=== PATIENT | female | born 1990 | race Caucasian/White ===

== ENCOUNTER → 2017-06-24 | Outpatient (CLI) | payer OTHER | END | disposition home or self-care (01) | LOC: LABWHC1 13:51 | PROVIDERS: ATTEND Obstetrics & Gynecology | DX: Z14.1 Cystic fibrosis carrier (principal) | CPT/HCPCS: 36415; 81220 ==

== ENCOUNTER 2019-02-18 18:40 | Emergency (ER) | payer BC ==
[2019-02-18 18:52] VITALS: RESP 18; TEMP 98
--- NOTE | 2019-02-18 19:05 | ED ---
Abdominal Pain HPI - General Source: patient Mode of arrival: ambulatory Limitations: no limitations <Thi Alfaro - Last Filed: 02/18/19 21:44> <Haleigh Carpio - Last Filed: 02/20/19 03:24> - General Chief Complaint: Abdominal Pain Stated Complaint: rt sided abd pain Time Seen by Provider: 02/18/19 18:50 - History of Present Illness Initial Comments: 28-year-old female patient presents to the emergency department today for evaluation of right lower quadrant abdominal pain. Patient states that pain is been present intermittently since . States that the pain is a sharp pinching type pain that lasts for a few seconds and wakes her up from sleep. Patient denies any fever, chills, nausea, vomiting, constipation, or diarrhea with this. Denies any hematuria, dysuria, urinary urgency, urinary frequency. She denies any abnormal vaginal bleeding or discharge. Patient states there is a possibility of however she has not missed any periods. Patient states she has had an ovarian cyst in the past and the pain leading up to the cyst rupture did feel similar to this. She is having a dull aching pain in her mid left low back. Patient denies any recent rash, shortness breath, chest pain, diarrhea, constipation, numbness, tingling, dizziness, weakness, headache, visual changes, or any other complaints. She states she is currently symptom free, but leaves for vacation on Wednesday. (Thi Alfaro) - Related Data Home Medications Medication Instructions Recorded Confirmed Pnv,Calcium 72/Iron/Folic Acid 1 each PO DAILY 11/28/15 12/27/15 [ Plus Tablet] Previous Rx's Medication Instructions Recorded Acetaminophen-Codeine 300-30mg 1 each PO Q4HR PRN #30 tab 12/30/15 [Tylenol w/codeine #3] Ibuprofen [Motrin] 600 mg PO Q6HR PRN #60 tab 12/30/15 Allergies Allergy/AdvReac Type Severity Reaction Status Date / Time No Known Allergies Allergy Verified 02/18/19 18:51 Review of Systems ROS Other: All systems not noted in ROS Statement are negative. <Thi Alfaro - Last Filed: 02/18/19 21:44> ROS Other: All systems not noted in ROS Statement are negative. <Haleigh Carpio Last Filed: 02/20/19 03:24> ROS Statement: Those systems with pertinent positive or pertinent negative responses have been documented in the HPI. Past Medical History Past Medical History: No Reported History Additional Past Medical History / Comment(s): Left knee injury History of Any Multi-Drug Resistant Organisms: None Reported Past Surgical History: Section Additional Past Surgical History / Comment(s): wisdom teeth removed Past Anesthesia/Blood Transfusion Reactions: No Reported Reaction Past Psychological History: No Psychological Hx Reported Smoking Status: Never smoker Past Alcohol Use History: Occasional Past Drug Use History: None Reported - Past Family History Mother Family Medical History: Hypertension <Thi Alfaro M - Last Filed: 02/18/19 21:44> General Exam Limitations: no limitations General appearance: alert, in no apparent distress, other (Physical well-develo ped, well-nourished adult female patient in no acute distress. Vital signs upon presentation are temperature 98.0F, pulse 101, respirations 18, blood pressure 129/79, pulse ox 99% on room air.) Eye exam: Present: normal appearance, PERRL, EOMI. Absent: scleral icterus, conjunctival injection, periorbital swelling ENT exam: Present: normal exam, normal oropharynx, mucous membranes moist Respiratory exam: Present: normal lung sounds bilaterally. Absent: respiratory distress, wheezes, rales, rhonchi, stridor Cardiovascular Exam: Present: normal rhythm, tachycardia, normal heart sounds. Absent: systolic murmur, diastolic murmur, rubs, gallop, clicks GI/Abdominal exam: Present: soft, normal bowel sounds. Absent: distended, tenderness, guarding, rebound, rigid Neurological exam: Present: alert, oriented X3, CN II-XII intact Psychiatric exam: Present: normal affect, normal mood Skin exam: Present: warm, dry, intact, normal color. Absent: rash <Thi Alfaro M - Last Filed: 02/18/19 21:44> Course Vital Signs 02/18/19 02/18/19 18:48 21:01 Temperature 98.0 F 98.0 F Pulse Rate 101 H 84 Respiratory 18 18 Rate Blood Pressure 129/79 123/79 O2 Sat by Pulse 99 100 Oximetry Medical Decision Making - Radiology Data Radiology results: report reviewed, image reviewed <Thi Alfaro - Last Filed: 02/18/19 21:44> <Haleigh Carpio - Last Filed: 02/20/19 03:24> - Medical Decision Making 28-year-old female patient presents to the emergency department today for evaluation of intermittent right lower quadrant abdominal pain. Patient is pain-free today and physical examination is unremarkable. Abdomen is soft and nontender. Urinalysis is negative for any evidence of infection. She is negative for . Did perform ultrasound of the pelvis as patient does have history of ovarian cysts. Did show possible 1.8 cm ovarian cyst on the right ovary. Again patient is afebrile, no nausea or vomiting, no current abdominal tenderness so concern for appendicitis is low. We did discuss signs and symptoms of such however for return if symptoms should worsen. She is instructed to follow-up with her primary care physician or OB An[facility] for recheck as soon as possible. Return parameters were discussed in detail. She verbalizes understanding and agrees with this plan. (Thi Alfaro) I was available for consultation in the emergency department. The history and physical exam were done by the midlevel provider. I was consulted for this patient's care. I reviewed the case with the midlevel provider and based on their presentation of the patient, I agree with the assessment, medical decision making and plan of care as documented. Chart was dictated using [employer] dictation software. Attempts were made to correct any dictation errors however some typographical errors may persist. (Haleigh Carpio) - Lab Data Lab Results 02/18/19 02/18/19 Range/Units 19:28 19:28 Urine Color Light Yellow Urine Appearance Clear (Clear) Urine pH 7.0 (5.0-8.0) Ur Specific [place] 1.007 (1.001-1.035) Urine Protein Negative (Negative) Urine Glucose (UA) Negative (Negative) Urine Ketones Negative (Negative) Urine Blood Negative (Negative) Urine Nitrite Negative (Negative) Urine Bilirubin Negative (Negative) Urine Urobilinogen <2.0 (<2.0) mg/dL Ur Leukocyte Esterase Negative (Negative) Urine HCG, Qual Not Detected (Not Detectd) - Radiology Data Pelvic ultrasound was obtained. Report was reviewed in its entirety. Impression by Dr. Arenas shows cervical nabothian cysts. Possible scar. Endometrial stripe measures 1 cm, within normal limits. 1.8 cm dominant follicle or functional cyst in the right ovary. Small amount of cul-de-sac free fluid likely physiologic. (Thi Alfaro) Disposition Is patient prescribed a controlled substance at d/c from ED?: No Time of Disposition: 21:20 <Thi Alfaro - Last Filed: 02/18/19 21:44> <Haleigh Carpio - Last Filed: 02/20/19 03:24> Clinical Impression: Right lower quadrant pain, Right ovarian cyst Disposition: HOME SELF-CARE Condition: Good Instructions (If sedation given, give patient instructions): Ovarian Cyst (ED), Abdominal Pain (ED) Additional Instructions: Follow-up with your primary care physician for recheck as soon as possible. Take Tylenol Motrin for pain control. Return to the emergency department immediately for any new, worsening, or concerning symptoms. Referrals: Javier Farr DO [Primary Care Provider] - 1-2 days
[2019-02-18 19:43] LABS: Appearance,Urine Clear (Clear); Bilirubin,Urine Negative (Negative); Blood,Urine Negative (Negative); Color,Urine Light Yellow; Glucose,Urine (UA) Negative (Negative); Ketones,Urine Negative (Negative); Leukocyte Esterase,Urine Negative (Negative); Nitrite,Urine Negative (Negative); Protein,Urine Negative (Negative); Specific Gravity,Urine 1.007 (1.001-1.035); Urobilinogen,Urine <2.0 mg/dL (<2.0)
--- NOTE | 2019-02-18 20:47 | US ---
EXAMINATION TYPE: US transvaginal. There is DATE OF EXAM: 02/18/2019 COMPARISON: NONE CLINICAL HISTORY: 28-year-old female Pain. TECHNIQUE: Transvaginal (TV). Color Doppler spectral waveform analysis of the right ovarian arteries and veins. FINDINGS: EXAM MEASUREMENTS: Uterus: 9.3 x 4.4 x 5.7 cm Endometrial Stripe: 1.0 cm Right Ovary: 2.8 x 2.6 x 2.6 cm Left Ovary: 2.5 x 1.6 x 1.4 cm 1. Uterus: Anteverted, wnl. Cervical nabothian cysts are present. Possible scar along th e anterior lower uterine segment. 2. Endometrium: wnl 3. Right Ovary: 1.8 cm dominant follicle noted. Their is satisfactory arterial and venous flow demons trated within the right ovary. 4. Left Ovary: wnl. Spectral waveform analysis was not performed on this side. 5. Bilateral Adnexa: wnl 6. Posterior cul-de-sac: mild free fluid IMPRESSION: 1. Cervical nabothian cysts. Possible scar. Clinically correlate. 2. Endometrial stripe measures 1 cm, within normal limits. 3. A 1.8 cm dominant follicle or functional cyst in the right ovary. 4. Small amount of cul-de-sac free fluid likely physiologic.
[2019-02-18 21:02] VITALS: BP 123/79; PULSE 84
== END 2019-02-18 21:32 | disposition home or self-care (01) ==
LOC: EC 18:40
DX: N83.201 Unspecified ovarian cyst, right side (principal); N88.8 Other specified noninflammatory disorders of cervix uteri; Z32.02 Encounter for pregnancy test, result negative; R00.0 Tachycardia, unspecified; M54.5 Low back pain
CPT/HCPCS: 76830; 81003; 81025; 99284

== ENCOUNTER 2019-06-08 19:44 | Emergency (ER) | payer BC ==
[2019-06-08] MEDS ORDERED: MORPHINE SULFATE 4 MG/ML SYRINGE IM STA (19:50)
[2019-06-08] MEDS ORDERED: IBUPROFEN 800 MG TAB PO STA (19:57)
[2019-06-08] MEDS ORDERED: Acetaminophen-Codeine 300-30mg TAB PO STA (19:57)
--- NOTE | 2019-06-08 20:36 | XR ---
EXAMINATION TYPE: XR knee complete LT DATE OF EXAM: 06/08/2019 COMPARISON: NONE HISTORY: Knee pain TECHNIQUE: 3 views FINDINGS: I see no fracture nor dislocation. There is mild knee joint effusion. Joint spaces are norm al. IMPRESSION: Small joint effusion. No fracture.
--- NOTE | 2019-06-08 20:49 | ED ---
Lower Extremity Injury HPI - General Chief Complaint: Extremity Injury, Lower Stated Complaint: knee injury Time Seen by Provider: 06/08/19 19:57 Source: patient, family, RN notes reviewed, old records reviewed Mode of arrival: ambulatory Limitations: no limitations - History of Present Illness Initial Comments: This is a 29-year-old female the ER for evaluation patient presents to ER for evaluation of severe left knee pain deformity. Patient was playing volleyball today and noticed her knee water place. He denies any other trauma or injury. No drugs or alcohol use today. Patient having severe left knee pain MD Complaint: knee injury ((Sorto or dislocation) -: minutes(s) Injury: Knee: Left Type of Injury: hyperextension, unknown Place: street/outdoors (Playing volleyball) Severity: severe Severity scale (1-10): 10 Improves With: nothing Worsens With: movement Associated Symptoms: snap/pop sensation, swelling, unable to bear weight - Related Data Home Medications Medication Instructions Recorded Confirmed Adapalene/Benzoyl Peroxide [Epiduo 1 applic TOPICAL DAILY 06/08/19 06/08/19 Forte 0.3-2.5% Gel Pump] Clindamycin 1% Pledgets 1 applic TOPICAL BID 06/08/19 06/08/19 Allergies Allergy/AdvReac Type Severity Reaction Status Date / Time No Known Allergies Allergy Verified 06/08/19 20:27 Review of Systems ROS Statement: Those systems with pertinent positive or pertinent negative responses have been documented in the HPI. ROS Other: All systems not noted in ROS Statement are negative. Past Medical History Past Medical History: No Reported History Additional Past Medical History / Comment(s): Left knee injury History of Any Multi-Drug Resistant Organisms: None Reported Past Surgical History: Section Additional Past Surgical History / Comment(s): wisdom teeth removed Past Anesthesia/Blood Transfusion Reactions: No Reported Reaction Past Psychological History: No Psychological Hx Reported Smoking Status: Never smoker Past Alcohol Use History: Occasional Past Drug Use History: None Reported - Past Family History Mother Family Medical History: Hypertension General Exam - General Exam Comments Initial Comments: Significant left is patellar dislocation Limitations: no limitations General appearance: alert, anxious, in distress Head exam: Present: atraumatic, normocephalic, normal inspection Eye exam: Present: normal appearance, PERRL, EOMI. Absent: scleral icterus, conjunctival injection, periorbital swelling ENT exam: Present: normal exam, mucous membranes moist Neck exam: Present: normal inspection. Absent: tenderness, meningismus, lymphadenopathy Respiratory exam: Present: normal lung sounds bilaterally. Absent: respiratory distress, wheezes, rales, rhonchi, stridor Cardiovascular Exam: Present: regular rate, normal rhythm, normal heart sounds. Absent: systolic murmur, diastolic murmur, rubs, gallop, clicks GI/Abdominal exam: Present: soft, normal bowel sounds. Absent: distended, ten derness, guarding, rebound, rigid Extremities exam: Present: normal inspection, full ROM, normal capillary refill. Absent: tenderness, pedal edema, joint swelling, calf tenderness Back exam: Present: normal inspection Neurological exam: Present: alert, oriented X3, CN II-XII intact Psychiatric exam: Present: normal affect, normal mood Skin exam: Present: warm, dry, intact, normal color. Absent: rash Course Vital Signs 06/08/19 19:58 Temperature 97.2 F L Pulse Rate 98 Respiratory 22 Rate Blood Pressure 131/59 O2 Sat by Pulse 97 Oximetry Procedures - Orthopedic Joint Reduction Joint #1 Consent Obtained: verbal consent Side: left Joint Reduction Location: knee/patella Technique Used: direct manipulation Post-Reduction Neuro Exam: intact Post-Reduction Vascular Exam: intact Post Reduction X-Ray Obtained: Yes Post Reduction X-Ray Results: reduced Splint Applied: Yes Patient Tolerated Procedure: well Medical Decision Making - Medical Decision Making 29 female the ER for evaluation of left patellar dislocation patella is recall relocated here in the ER patient has knee immobilizer placed on fall with orthopedics - Radiology Data Radiology results: report reviewed (X-ray left knee does show small joint effusion), image reviewed Disposition Clinical Impression: Dislocation of left patella Disposition: HOME SELF-CARE Condition: Fair Is patient prescribed a controlled substance at d/c from ED?: No Referrals: Mono Sharpe DO [Medical Doctor] - 1-2 days
[2019-06-08 21:19] VITALS: BP 132/82; PULSE 96; RESP 19; TEMP 98.7
== END 2019-06-08 21:17 | disposition home or self-care (01) ==
LOC: EC 19:44
DX: S83.005A Unspecified dislocation of left patella, initial encounter (principal); Z79.899 Other long term (current) drug therapy; X58.XXXA Exposure to other specified factors, initial encounter; Y93.68 Activity, volleyball (beach) (court); Y92.410 Unspecified street and highway as the place of occurrence of the external cause
CPT/HCPCS: 73562; 99284; 27560; L1830

== ENCOUNTER 2021-02-13 10:58 | Emergency (ER) | payer BC ==
[2021-02-13 11:41] VITALS: TEMP 98.3
--- NOTE | 2021-02-13 11:42 | ED ---
General Adult HPI - General Source: patient, RN notes reviewed Mode of arrival: ambulatory Limitations: no limitations <Dequan Castellanos - Last Filed: 02/13/21 11:41> <Harman Jones - Last Filed: 02/13/21 20:06> - General Stated complaint: 9wks preg, covid + Time Seen by Provider: 02/13/21 11:41 - History of Present Illness Initial comments: This a 30-year-old female presents emergency Department chief complaint of positive covid, . Patient states she is currently 9 weeks . 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 Kevin Patient did contact office in which itches should come emergency department for steroids, antibiotics. Patient states that she has no significant past medical history. Patient is known drug ALLERGIES. Patient has nonproductive cough. Patient has no complaints. (Dequan Castellanos) This is a 30-year-old female presents emergency Department with a positive test for COVID and symptoms starting about 9 days ago. Patient states she is 9 weeks as well. Patient states her primary medical care doctor total come to the hospital because she feels somewhat short of breath but mostly it hurts to cough and she can't stop coughing. Patient states she spoke with Dr. Gonzales's office and they told her steroids would be okay. Patient denies any chest pain except when coughing or taking deep breath. Patient denies any abdominal pain patient denies any nausea vomiting. Patient denies any lightheadedness or dizziness. Patient denies any calf tenderness or leg swelling. (Harman Jones) - Related Data Home Medications Medication Instructions Recorded Confirmed Adapalene/Benzoyl Peroxide [Epiduo 1 applic TOPICAL DAILY 06/08/19 06/08/19 Forte 0.3-2.5% Gel Pump] Clindamycin 1% Pledgets 1 applic TOPICAL BID 06/08/19 06/08/19 Previous Rx's Medication Instructions Recorded Benzonatate [Tessalon Perles] 200 mg PO TID #15 capsule 02/13/21 Dexamethasone [Decadron] 6 mg PO DAILY #7 tablet 02/13/21 Allergies Allergy/AdvReac Type Severity Reaction Status Date / Time No Known Allergies Allergy Verified 02/13/21 11:41 Review of Systems ROS Other: All systems not noted in ROS Statement are negative. <Dequan Castellanos - Last Filed: 02/13/21 11:41> ROS Other: All systems not noted in ROS Statement are negative. <Harman Jones - Last Filed: 02/13/21 20:06> ROS Statement: Those systems with pertinent positive or pertinent negative responses have been documented in the HPI. Past Medical History Past Medical History: No Reported History Additional Past Medical History / Comment(s): Left knee injury History of Any Multi-Drug Resistant Organisms: None Reported Past Surgical History: Section Additional Past Surgical History / Comment(s): wisdom teeth removed Past Anesthesia/Blood Transfusion Reactions: No Reported Reaction Past Psychological History: No Psychological Hx Reported Past Alcohol Use History: Occasional Past Drug Use History: None Reported - Past Family History Mother Family Medical History: Hypertension <Dequan Castellanos - Last Filed: 02/13/21 11:41> General Exam <JonesHarman - Last Filed: 02/13/21 20:06> - General Exam Comments Initial Comments: GENERAL: Patient is well-developed and well-nourished. Patient is nontoxic and well- hydrated and is in mild distress. ENT: Neck is soft and supple. No significant lymphadenopathy is noted. Oropharynx is clear. Moist mucous membranes. Neck has full range of motion without eliciting any pain. EYES: The sclera were anicteric and conjunctiva were pink and moist. Extraocular movements were intact and pupils were equal round and reactive to light. Eyelids were unremarkable. PULMONARY: She has some crackles in both bases. CARDIOVASCULAR: There is a regular rate and rhythm without any murmurs gallops or rubs. ABDOMEN: Soft and nontender with normal bowel sounds. SKIN: Skin is clear with no lesions or rashes and otherwise unremarkable. NEUROLOGIC: Patient is alert and oriented x3. Cranial nerves II through XII are grossly intact. Motor and sensory are also intact. Normal speech, volume and content. Symmetrical smile. MUSCULOSKELETAL: Normal extremities with adequate strength and full range of motion. Patient has no swelling to the legs tenderness. LYMPHATICS: No significant lymphadenopathy is noted PSYCHIATRIC: Normal psychiatric evaluation. (Harman Jones) Course Vital Signs 02/13/21 02/13/21 02/13/21 11:39 11:48 12:17 Temperature 98.3 F Pulse Rate 105 H 87 Respiratory 22 20 20 Rate Blood Pressure 110/71 115/78 O2 Sat by Pulse 98 100 Oximetry 02/13/21 12:30 Temperature 98.3 F Pulse Rate 87 Respiratory 20 Rate Blood Pressure 115/78 O2 Sat by Pulse 100 Oximetry Medical Decision Making <Harman Jones - Last Filed: 02/13/21 20:06> - Medical Decision Making I indicated to the patient that I wanted to CAT scan her chest for possible pulmonary embolism and she said she did not want that. I spoke with Dr. zuñiga she was okay with me giving her steroids and Tessalon Perles. (Harman Jones) Disposition <Dequan Castellanos - Last Filed: 02/13/21 11:41> Is patient prescribed a controlled substance at d/c from ED?: No Time of Disposition: 12:24 <Harman Jones - Last Filed: 02/13/21 20:06> Clinical Impression: Pneumonia due to COVID-19 virus Disposition: HOME SELF-CARE Condition: Good Instructions (If sedation given, give patient instructions): Coronavirus Disease 2019 (COVID-19) Prescriptions: Dexamethasone [Decadron] 6 mg PO DAILY #7 tablet Benzonatate [Tessalon Perles] 200 mg PO TID #15 capsule Referrals: Javier Farr DO [Primary Care Provider] - 1-2 days
[2021-02-13 11:48] VITALS: BP 115/78; PULSE 87; RESP 20
== END 2021-02-13 12:32 | disposition home or self-care (01) ==
LOC: EC 10:58
DX: O98.511 Other viral diseases complicating pregnancy, first trimester (principal); U07.1 COVID-19; J12.82 Pneumonia due to coronavirus disease 2019; O99.511 Diseases of the respiratory system complicating pregnancy, first trimester; Z3A.09 9 weeks gestation of pregnancy
CPT/HCPCS: 99284

== ENCOUNTER 2021-07-30 12:35 | Outpatient (CLI) | payer BC ==
[2021-07-30] MEDS ORDERED: BETAMET ACET-BETAMETH SOD PHOS 6 MG/ML MDV IM SCH (12:45)
== END 2021-07-30 12:50 | disposition home or self-care (01) ==
LOC: FBPOP 12:35
PROVIDERS: ATTEND Obstetrics & Gynecology Obstetrics
DX: O60.03 Preterm labor without delivery, third trimester (principal); Z3A.33 33 weeks gestation of pregnancy
CPT/HCPCS: 96372; J0702

== ENCOUNTER 2021-07-31 12:05 | Outpatient (CLI) | payer BC ==
[2021-07-31] MEDS ORDERED: BETAMET ACET-BETAMETH SOD PHOS 6 MG/ML MDV IM SCH (12:15)
[2021-07-31 12:27] VITALS: BP 141/59; PULSE 98; RESP 16; TEMP 98.2
== END 2021-07-31 12:25 | disposition home or self-care (01) ==
LOC: FBPOP 12:05
PROVIDERS: ATTEND Obstetrics & Gynecology Obstetrics
DX: O60.03 Preterm labor without delivery, third trimester (principal); Z3A.33 33 weeks gestation of pregnancy
CPT/HCPCS: 96372; J0702

== ENCOUNTER 2021-08-25 04:01 | Outpatient (CLI) | payer BC ==
[2021-08-25 05:44] LABS: Amorphous Sediment,Urine Rare /hpf; Appearance,Urine Cloudy (Clear); Bacteria,Urine Occasional /hpf; Bilirubin,Urine Negative (Negative); Blood,Urine Negative (Negative); Color,Urine Yellow; Glucose,Urine (UA) Negative (Negative); Ketones,Urine Trace (Negative); Leukocyte Esterase,Urine Moderate (Negative); Mucus,Urine Moderate /hpf; Nitrite,Urine Negative (Negative); Protein,Urine Trace (Negative); RBC,Urine 2 /hpf (0-5); Squamous Epithelial Cell,Urine 3 /hpf (0-4); Urobilinogen,Urine <2.0 mg/dL (<2.0); WBC,Urine 22 /hpf (0-5)
[2021-08-25 06:05] LABS: Basophils % (A) 0 %; Eosinophils # (A) 0.1 k/uL (0-0.7); Eosinophils % (A) 1 %; HCT 34.7 % (34.0-46.0); HGB 11.3 gm/dL (11.4-16.0); Lymphocytes # (A) 1.9 k/uL (1.0-4.8); Lymphocytes % (A) 22 %; MCH 26.8 pg (25.0-35.0); MCHC 32.6 g/dL (31.0-37.0); MCV 82.2 fL (80.0-100.0); Mean Platelet Volume 6.8; Monocytes # (A) 0.5 k/uL (0-1.0); Monocytes % (A) 6 %; Neutrophils # (A) 5.9 k/uL (1.3-7.7); Neutrophils % (A) 69 %; Platelet Count 342 k/uL (150-450); Poikilocytosis Slight; RBC 4.22 m/uL (3.80-5.40); RDW 14.1 % (11.5-15.5); WBC 8.5 k/uL (3.8-10.6)
[2021-08-25 06:16] LABS: ALT 13 U/L (4-34); AST 18 U/L (14-36); African American GFR (CKD) >90 (>60 ml/min/1.73 sqM); Blood Urea Nitrogen 5 mg/dL (7-17); LDH 359 U/L (313-618); Non-African American GFR(CKD) >90 (>60 ml/min/1.73 sqM); Uric Acid 3.2 mg/dL (3.7-7.4)
[2021-08-25 06:48] VITALS: BP 140/90; PULSE 107; RESP 18
--- NOTE | 2021-09-14 09:46 | P.MSEPDOC ---
Presenting Problems - Arrival Data Date of Arrival on Unit: 08/25/21 Time of Arrival on Unit: 04:01 Mode of Transport: Ambulatory - Complaint OB-Reason for Admission/Chief Complaint: Pain Comment: vaginal pain, sympysis pubis pain 06/10 Medical History - Information : 2 Para: 1 Term: 0 : 1 Abortions: Spontaneous or Elective: 0 Number of Living Children: 1 - Gestational Age Gestational Age by INÉS (wks/days): 36 Weeks and 4 Days - History Complications: Prior , Prior Review of Systems - Review of Systems Constitutional: No problems Breast: No problems ENT: No problems Cardiovascular: No problems Respiratory: No problems Gastrointestinal: No problems Genitourinary: No problems Musculoskeletal: No problems Neurological: No problems Skin: No problems Vital Signs - Pulse Supine Brachial Pulse Rate: 107 Pulse Assessment Method: Automatic Cuff - Respirations Respiratory Rate: 18 Oxygen Delivery Method: Room Air - Blood Pressure Right Arm Supine Blood Pressure: 140/90 Blood Pressure Mean: 106 Medical Screen Scoring - Cervical Exam Dilation (cm): 2 Effacement (%): 50 Station: -2 Membranes: Intact - Uterine Contractions Intensity: Mild - Assessment - Baby A Baseline FHR: 145 Heart Rate - NICHD Category: Category I (Normal) Physician Notification - Physician Notified Physician Notified Date: 08/25/21 Physician Notified Time: 04:30 Physician: Dr Herberth Garza Order Received: Yes (PI labs) - Notification Comment Comment: In department, run PI labs and will check after OR Maternal Triage Index - Maternal Triage Index Presenting for scheduled procedure w/no complaint: No - Stat/Priority 1 Stat Priority 1: No - Urgent/Priority 2 Urgent Priority 2: No - Prompt/Priority 3 Prompt Priority 3: No - Non-Urgent/Priority 4 Non-Urgent Priority 4: Yes Criteria Met for Priority 4: Common discomforts of BP not greater than 140/90 just equal to. Disposition - Disposition OB Disposition: Discharge to home Discharge Date: 08/25/21 Discharge Time: 06:30 I agree with the RN Medical Screening Exam: Yes Physician's MSE Comment: Patient was not seen or examined by myself Case reviewed; plan agreed upon as documented in EMR&OBIX.: Yes Diagnosis: PAIN, UNSPECIFIED
== END 2021-08-25 06:30 | disposition home or self-care (01) ==
LOC: FBPOP 04:01
PROVIDERS: ATTEND Obstetrics & Gynecology Obstetrics
DX: O26.893 Other specified pregnancy related conditions, third trimester (principal); R10.2 Pelvic and perineal pain; Z3A.36 36 weeks gestation of pregnancy
CPT/HCPCS: 59025; 81001; 82565; 83615; 84450; 84460; 84520; 84550; 85025; 99215

== ENCOUNTER 2021-08-28 09:55 | Inpatient (IN) | payer BC ==
[2021-08-28] MEDS ORDERED: CITRIC ACID-SODIUM CITRATE 15 ML CUP PO ONE (10:19)
[2021-08-28] MEDS ORDERED: LACTATED RINGERS 1,000 ML IV ONE (10:19)
[2021-08-28 10:41] LABS: Basophils % (A) 0 %; Eosinophils # (A) 0.1 k/uL (0-0.7); Eosinophils % (A) 1 %; HCT 34.1 % (34.0-46.0); HGB 11.1 gm/dL (11.4-16.0); Lymphocytes # (A) 1.7 k/uL (1.0-4.8); Lymphocytes % (A) 20 %; MCH 26.6 pg (25.0-35.0); MCHC 32.6 g/dL (31.0-37.0); MCV 81.4 fL (80.0-100.0); Mean Platelet Volume 6.9; Monocytes # (A) 0.5 k/uL (0-1.0); Monocytes % (A) 6 %; Neutrophils % (A) 71 %; Platelet Count 363 k/uL (150-450); Poikilocytosis Slight; RBC 4.19 m/uL (3.80-5.40); RDW 14.4 % (11.5-15.5); WBC 8.4 k/uL (3.8-10.6)
[2021-08-28] MEDS ORDERED: CELLULOSE,OXIDIZED 1 EACH EACH MISCELLANE ONE (12:00)
[2021-08-28] MEDS ORDERED: PHENYLEPHRINE-0.9% NACL SYG 1,000 MCG/10 ML SYRINGE ONE (12:07)
[2021-08-28] MEDS ORDERED: NALBUPHINE 10 MG/ML (1 ML AMP) ONE (12:07)
[2021-08-28] MEDS ORDERED: OXYTOCIN 30 UNITS/500 ML NS BAG IV ONE (12:07)
[2021-08-28] MEDS ORDERED: MORPHINE SULFATE (PF) 0.3 MG/0.3 ML SYR ONE (12:07)
[2021-08-28] MEDS ORDERED: ONDANSETRON 4 MG/2 ML VIAL IVP PRN (13:08)
[2021-08-28] MEDS ORDERED: METOCLOPRAMIDE 5 MG/ML 2 ML VIAL IVP PRN (13:08)
[2021-08-28] MEDS ORDERED: NALOXONE 0.4 MG/ML 1 ML VIAL IV PRN (13:08)
[2021-08-28] MEDS ORDERED: diphenhydrAMINE 50 MG/ML 1 ML VIAL IVP PRN ×2 (13:08)
[2021-08-28] MEDS ORDERED: diphenhydrAMINE 50 MG CAP PO PRN (13:08)
[2021-08-28] MEDS ORDERED: diphenhydrAMINE 25 MG CAP PO PRN (13:08)
[2021-08-28] MEDS ORDERED: SIMETHICONE 80 MG CHEWABLE PO PRN (13:08)
[2021-08-28] MEDS ORDERED: ZOLPIDEM 5 MG TAB PO PRN (13:08)
--- NOTE | 2021-08-28 13:13 | P.HPOB ---
History of Present Illness H&P Date: 08/28/21 Chief Complaint: IUP at 37-0/7 weeks, polyhydramnios, history of 1, family status This is a 31-year-old at 37-0/7 weeks that presents for repeat section with tubal ligation. Patient has a history of a delivery. has been uncomplicated despite new findings of polyhydramnios. FREDDIE was 27 in the office yesterday. Patient states she is done with childbearing and does wish permanent sterilization. On bloodwork this patient is a blood type of O+, rubella status immune, B surface negative, HIV negative, RPR nonreactive, group beta strep was negative. 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 Review of Systems Constitutional: Reports fatigue, Denies chills, Denies fever Ears, nose, mouth and throat: Denies headache Cardiovascular: Reports leg edema Gastrointestinal: Denies constipation, Denies diarrhea, Denies nausea, Denies vomiting Genitourinary: Reports Past Medical History Past Medical History: No Reported History Additional Past Medical History / Comment(s): Left knee injury History of Any Multi-Drug Resistant Organisms: None Reported Past Surgical History: Section Additional Past Surgical History / Comment(s): wisdom teeth removed Past Anesthesia/Blood Transfusion Reactions: No Reported Reaction Past Psychological History: No Psychological Hx Reported Smoking Status: Never smoker Past Alcohol Use History: Occasional Past Drug Use History: None Reported - Past Family History Mother Family Medical History: Hypertension Medications and Allergies Home Medications Medication Instructions Recorded Confirmed Type Aspirin 81 mg PO DAILY 07/30/21 08/28/21 History Pnv No.95/Ferrous Fum/Folic AC 1 each PO DAILY 07/30/21 08/28/21 History [ Multivitamin Tablet] Allergies Allergy/AdvReac Type Severity Reaction Status Date / Time No Known Allergies Allergy Verified 08/28/21 10:18 Exam Osteopathic Statement: *. No significant issues noted on an osteopathic structural exam other than those noted in the History and Physical/Consult. 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 Cervical exam is deferred. Results Result Diagrams: 08/28/21 10:28 Abnormal Lab Results - Last 24 Hours (Table) 08/28/21 Range/Units 10:28 Hgb 11.1 L (11.4-16.0) gm/dL Assessment and Plan (1) 37 weeks gestation of Current Visit: Yes Status: Acute Code(s): Z3A.37 - 37 WEEKS GESTATION OF SNOMED Code(s): 07542513 (2) Polyhydramnios Current Visit: Yes Status: Acute Code(s): O40.9XX0 - POLYHYDRAMNIOS, UNSP TRIMESTER, NOT APPLICABLE OR UNSP SNOMED Code(s): 68713740 (3) H/O section Current Visit: Yes Status: Acute Code(s): Z98.891 - HISTORY OF UTERINE SCAR FROM PREVIOUS SURGERY SNOMED Code(s): 801977970 Plan: 31-year-old at 37-0/7 weeks with known polyhydramnios that presents for repeat section with tubal ligation. Patient states she is done with childbearing and wishes permanent sterilization. Repeat section as discussed questions are answered. Risser reviewed including but not limited to infection, bleeding, damage to bladder, bowel, injury. Patient is co unseled on risks of tubal ligation, failure rates of 2-3 per thousand are reviewed. Patient states understanding and wishes to proceed with tubal ligation.
[2021-08-28] MEDS ORDERED: OXYTOCIN 30 UNITS/500 ML NS 30 UNIT in SALINE 1 500ML.BAG IV SCH (13:15)
--- NOTE | 2021-08-28 13:19 | P.OP ---
Date of Procedure: 08/28/21 Preoperative Diagnosis: IUP at 37 and 0/7 weeks, polyhydramnios, history of 1, family status complete Postoperative Diagnosis: Same Procedure(s) Performed: Repeat repeat section with tubal ligation Anesthesia: spinal Surgeon: Masha Kevin Estimated Blood Loss (ml): 473 IV fluids (ml): 800 Urine output (ml): 100 Pathology: other (Placenta) Condition: stable Disposition: PACU Indications for Procedure: History of 1, desires repeat, polyhydramnios Operative Findings: Viable male infant delivered at 12:30, weight of 7 lbs. 7 oz., Apgars of 7 and 8 at one and 5 minutes respectively., Anterior bladder adhesions were noted taken down sharply, Bueno draining clear urine throughout the procedure. Description of Procedure: Patient is taken back to the operating room where spinal anesthesia was found be adequate. Patient is prepped and draped in normal sterile fashion in the dorsal supine position. A Pfannenstiel skin incision was made the scalpel and carried through the underlying layer of fascia. Fascia was then incised in the midline and extended laterally. The superior aspect of the fascial incision was then grasped jaspal clamps, elevated and underlying rectus muscles dissected off sharply. Attention then turned the inferior aspect of the fascial incision which was grasped jaspal clamps, elevated and underlying rectus muscles dissected off sharply. The peritoneal and was identified and entered. This incision was then extended superior laterally and inferiorly with good visualization the bladder. Anterior bladder adhesions were noted therefore these were taken down sharply, and bluntly. Bueno was noted be draining clear yellow urine throughout the procedure. The bladder blade was then inserted. A knife was then used to perform a hysterotomy incision copious amounts of clear fluid was appreciated, the infant was then encountered in a vertex presentation, delivered in the usual fashion. was handed off to awaiting RN, after the umbilical cord was doubly clamped and cut. A spontaneous cry was noted at . The placenta was then delivered manually and the uterus was cleared of all clots and debris. Uterus was delivered from the abdomen. The hysterotomy incision was closed with 0 Vicryl in a running locked fashion. Hemostasis was appreciated The Filshie clip applicator was then used to clamp bilateral fallopian tubes according to equipment worker's instructions. The pelvis was then copiously irrigated. The uterus was then returned to the abdomen. Bleeding was noted on the left-hand side of the uterus [id number] suture was used to obtain hemostasis. Interceed was placed over the hysterotomy incision. The gutters had been cleared of all clots and debris prior to this. The peritoneum was then loosely reapproximated. The excess muscles were inspected found to be hemostatic. The fascia was closed with 0 Vicryl in a running fashion from one lateral edge the midline and the other lateral edge the midline. Subcu tissue was irrigated found to be hemostatic and closed with 3-0 Vicryl in a running fashion. The skin was then closed with 4-0 Vicryl in a subarticular fashion. Suture strips and sterile dressings were applied. All counts were noted to be correct 2 with Liyah the procedure. Patient and infant tolerated delivery well and are resting complete.
[2021-08-28] MEDS: LACTATED RINGERS 1,000 ML IV SCH ×2 (14:09→21:56)
[2021-08-28] MEDS: ACETAMINOPHEN IV (For NPO) 1,000 MG in EMPTY BAG 1 BAG IVPB PRN ×2 (14:10→21:55)
[2021-08-28] MEDS: ACETAMINOPHEN TAB 500 MG TAB PO SCH ×2 (17:28→22:11)
[2021-08-28] MEDS: IBUPROFEN IV 800 MG in SODIUM CHLORIDE 0.9% 250 ML IV PRN (18:52)
[2021-08-28] MEDS: IBUPROFEN 600 MG TAB PO SCH (19:52)
[2021-08-28] MEDS: SENNOSIDES-DOCUSATE SODIUM 1 EACH TAB PO SCH (20:06)
[2021-08-29] MEDS: IBUPROFEN IV 800 MG in SODIUM CHLORIDE 0.9% 250 ML IV PRN (00:27)
[2021-08-29] MEDS: IBUPROFEN 600 MG TAB PO SCH ×5 (01:46→22:10)
[2021-08-29] MEDS: ACETAMINOPHEN TAB 500 MG TAB PO SCH ×4 (04:52→23:34)
[2021-08-29] MEDS: LACTATED RINGERS 1,000 ML IV SCH ×2 (06:13→17:24)
[2021-08-29 06:56] LABS: Basophils % (A) 0 %; Eosinophils # (A) 0.1 k/uL (0-0.7); Eosinophils % (A) 1 %; HCT 29.5 % (34.0-46.0); HGB 10.1 gm/dL (11.4-16.0); Lymphocytes # (A) 1.3 k/uL (1.0-4.8); Lymphocytes % (A) 13 %; MCH 27.7 pg (25.0-35.0); MCHC 34.1 g/dL (31.0-37.0); MCV 81.1 fL (80.0-100.0); Mean Platelet Volume 6.9; Monocytes # (A) 0.6 k/uL (0-1.0); Monocytes % (A) 6 %; Neutrophils # (A) 7.7 k/uL (1.3-7.7); Neutrophils % (A) 78 %; Platelet Count 291 k/uL (150-450); Poikilocytosis Slight; RBC 3.64 m/uL (3.80-5.40); RDW 14.7 % (11.5-15.5); WBC 9.9 k/uL (3.8-10.6)
[2021-08-29] MEDS: SENNOSIDES-DOCUSATE SODIUM 1 EACH TAB PO SCH ×2 (08:31→19:40)
--- NOTE | 2021-08-29 09:28 | P.PNOBGPC ---
Subjective - Subjective Principal diagnosis: Postop day 1, repeat with tubal ligation Interval history: Patient is feeling well this morning. She is ambulating and voiding without difficulty. She is tolerating a regular diet without nausea or vomiting. She states her lochia is minimal. Pain is controlled with oral ibuprofen. She is breast-feeding without difficulty. Patient reports: Reports appetite normal, Reports voiding normally, Reports pain well controlled, Reports ambulating normally [place]: doing well, nursing well Objective - Vital Signs Latest vital signs: Vital Signs Temp Pulse Resp BP Pulse Ox 08/29/21 08:00 98.4 F 89 18 111/74 08/29/21 04:00 98.3 F 97 17 112/76 97 08/29/21 00:00 98.6 F 75 17 117/65 98 08/28/21 20:00 98.5 F 87 17 120/76 97 08/28/21 16:00 97.8 F 89 16 115/76 96 08/28/21 15:00 97.5 F L 72 16 123/73 99 08/28/21 14:30 74 16 130/70 98 08/28/21 14:00 79 16 133/75 98 08/28/21 13:45 97 16 103/53 98 08/28/21 13:30 90 16 110/55 98 08/28/21 13:15 85 16 108/58 96 08/28/21 13:00 96.5 F L 80 16 107/55 96 08/28/21 10:17 97.8 F 108 H 16 132/78 100 Intake and Output 08/28/21 08/29/21 08/29/21 22:59 06:59 14:59 Output Total 1326 800 Balance -1326 -800 Output: Urine 1250 800 Estimated Blood Loss 76 Other: Voiding Method Toilet # Voids 1 1 - Exam Extremities: Present: normal, edema Abdomen: Present: normal appearance, soft Incision: Present: normal, dry, intact - Labs Labs: Abnormal Lab Results - Last 24 Hours (Table) 08/28/21 08/29/21 Range/Units 10: 06:23 RBC 3.64 L (3.80-5.40) m/uL Hgb 11.1 L 10.1 L (11.4-16.0) gm/dL Hct 29.5 L (34.0-46.0) % Assessment and Plan (1) 37 weeks gestation of Current Visit: Yes Status: Acute Code(s): Z3A.37 - 37 WEEKS GESTATION OF SNOMED Code(s): 75537968 (2) Polyhydramnios Current Visit: Yes Status: Acute Code(s): O40.9XX0 - POLYHYDRAMNIOS, UNSP TRIMESTER, NOT APPLICABLE OR UNSP SNOMED Code(s): 20197368 (3) H/O section Current Visit: Yes Status: Acute Code(s): Z98.891 - HISTORY OF UTERINE SCAR FROM PREVIOUS SURGERY SNOMED Code(s): 320969324 (4) S/P section Current Visit: Yes Status: Acute Code(s): Z98.891 - HISTORY OF UTERINE SCAR FROM PREVIOUS SURGERY SNOMED Code(s): 491845801 (5) Family planning Current Visit: Yes Status: Acute Code(s): Z30.09 - ENCOUNTER FOR OTH GENERAL CNSL AND ADVICE ON CONTRACEPTION SNOMED Code(s): 860056866 Plan: 31-year-old G2 now P2 status post repeat section with tubal ligation. Patient is feeling well. Plan to continue routine postoperative care and anticipate discharge home tomorrow morning.
[2021-08-29] MEDS: PRENATAL VIT-IRON-FOLIC ACID 1 EACH CAP PO SCH (13:13)
[2021-08-29 16:08] VITALS: RESP 16
[2021-08-30] MEDS: LACTATED RINGERS 1,000 ML IV SCH (00:08)
[2021-08-30] MEDS: IBUPROFEN 600 MG TAB PO SCH ×5 (03:53→22:21)
[2021-08-30] MEDS: ACETAMINOPHEN TAB 500 MG TAB PO SCH ×3 (06:56→17:31)
--- NOTE | 2021-08-30 11:16 | P.PNOBGPC ---
Subjective - Subjective Principal diagnosis: Postop day 2 Interval history: Pain control better with scheduled Motrin and Tylenol use. Baby is in the nursery with elevated bilirubin. Patient reports: Reports appetite normal, Reports voiding normally, Reports pain well controlled, Reports ambulating normally, Denies dizzy ambulation, Denies nauseated : in NICU Objective - Vital Signs Latest vital signs: Vital Signs Temp Pulse Resp BP Pulse Ox 08/30/21 00:00 98.2 F 83 16 111/63 98 08/29/21 16:00 98.4 F 88 16 118/73 98 08/29/21 11:57 98.3 F 93 106/66 Intake and Output 08/29/21 08/30/21 08/30/21 22:59 06:59 14:59 Other: # Voids 2 1 - Exam Extremities: Present: normal, edema (1+) Abdomen: Present: normal appearance, soft, distention, tenderness Incision: Present: normal, dry, intact. Absent: erythematous, suppurative Uterus: Present: normal, firm Assessment and Plan (1) 37 weeks gestation of Current Visit: Yes Status: Acute Code(s): Z3A.37 - 37 WEEKS GESTATION OF SNOMED Code(s): 96185261 (2) Family planning Current Visit: Yes Status: Acute Code(s): Z30.09 - ENCOUNTER FOR OT GENERAL CNSL AND ADVICE ON CONTRACEPTION SNOMED Code(s): 921314208 (3) H/O section Current Visit: Yes Status: Acute Code(s): Z98.891 - HISTORY OF UTERINE SCAR FROM PREVIOUS SURGERY SNOMED Code(s): 155520965 (4) Polyhydramnios Current Visit: Yes Status: Acute Code(s): O40.9XX0 - POLYHYDRAMNIOS, UNSP TRIMESTER, NOT APPLICABLE OR UNSP SNOMED Code(s): 95537142 (5) S/P section Current Visit: Yes Status: Acute Code(s): Z98.891 - HISTORY OF UTERINE SCAR FROM PREVIOUS SURGERY SNOMED Code(s): 337370450 Plan: Postoperative days 2 status post repeat low transverse section with bilateral tubal ligation. She is recovering well and we discussed scheduled pain medication use. The infant unfortunately is in the nursery for off phototherapy for elevated bilirubin and will not be discharge. Anticipate discharge home tomorrow.
[2021-08-30] MEDS: PRENATAL VIT-IRON-FOLIC ACID 1 EACH CAP PO SCH (13:03)
[2021-08-30] MEDS: SENNOSIDES-DOCUSATE SODIUM 1 EACH TAB PO SCH ×2 (13:04→23:01)
--- NOTE | 2021-08-30 15:17 | P.PN ---
Progress Note - Text Progress Note Date: 08/30/21 Postoperative day 1 status post section under spinal anesthesia, and i ntrathecal morphine given for postoperative analgesia, patient doing well, there is no anesthesia related complications, Patient had no headache, vital signs stable , Assessment and plan= postop day 1 status post , doing well there is no anesthesia related complication.
[2021-08-30 23:00] VITALS: TEMP 98.3
[2021-08-31] MEDS: IBUPROFEN 600 MG TAB PO SCH ×2 (04:28→11:44)
[2021-08-31] MEDS: ACETAMINOPHEN TAB 500 MG TAB PO SCH (06:27)
[2021-08-31] MEDS: SENNOSIDES-DOCUSATE SODIUM 1 EACH TAB PO SCH (08:27)
[2021-08-31] MEDS: PRENATAL VIT-IRON-FOLIC ACID 1 EACH CAP PO SCH (08:41)
[2021-08-31 09:45] VITALS: BP 121/78; PULSE 81
--- NOTE | 2021-08-31 11:14 | P.DS ---
Providers Date of admission: 08/28/21 09:55 Expected date of discharge: 08/31/21 Attending physician: Masha Kevin Primary care physician: Stated None - Discharge Diagnosis(es) (1) 37 weeks gestation of Current Visit: Yes Status: Acute (2) Family planning Current Visit: Yes Status: Acute (3) H/O section Current Visit: Yes Status: Acute (4) Polyhydramnios Current Visit: Yes Status: Acute (5) S/P section Current Visit: Yes Status: Acute Hospital Course: This is a 31 year old 2 now para 2 woman who was admitted at 37 weeks gestation for planned repeat low transverse section with bilateral tubal ligation. Should a history of a previous section as well as on findings of polyhydramnios at term. She had an FREDDIE of 29 cm prior to admission. Following admission she went to the operating room where she had an uncomplicated repeat low transverse section. Findings at the time of surgery were significant for a male infant weighing 7 lbs. 7 oz. with Apgars of 7 at 1 minute and 8 at 5 minutes. Please see the operative report for details. Her postoperative course was unremarkable. On postoperative day #1 she was ambulating and voiding without difficulty and her pain was tolerated with oral pain medications. She was breast-feeding. To stop hemoglobin was stable. By postoperative day #2 she was having some on difficulty with pain control and scheduled pain medication use was reviewed. The infant was found to have elevated bilirubins and was treated with phototherapy. By postoperative day #3 the infant was discharged back to the room in good condition. Her pain was well-controlled. Her incision appeared intact and well-healing. She had minimal lochia. She was therefore discharged home with routine instructions for postoperative care and follow-up. Procedures: Repeat low transverse section and bilateral tubal ligation Patient Condition at Discharge: Good Plan - Discharge Summary New Discharge Prescriptions: New Acetaminophen Tab [Tylenol] 1,000 mg PO Q6H tab Ibuprofen 800 mg PO Q8H PRN #30 tab PRN Reason: Pain No Action Aspirin 81 mg PO DAILY Pnv No.95/Ferrous Fum/Folic AC [ Multivitamin Tablet] 1 each PO DAILY Discharge Medication List Aspirin 81 mg PO DAILY 07/30/21 [History] Pnv No.95/Ferrous Fum/Folic AC [ Multivitamin Tablet] 1 each PO DAILY 07/30/21 [History] Acetaminophen Tab [Tylenol] 1,000 mg PO Q6H tab 08/31/21 [Rx] Ibuprofen 800 mg PO Q8H PRN #30 tab 08/31/21 [Rx] Follow up Appointment(s)/Referral(s): Masha Kevin DO [Doctor of Osteopathic Medicine] - 1 Week Activity/Diet/Wound Care/Special Instructions: Follow-up in 2 weeks after surgery in the office. Call the office with any concerning signs or symptoms including fever greater than 101, severe abdominal pain, heavy vaginal bleeding, signs of wound infection, increased swelling or redness of the lower extremities, signs of depression. No driving for 2 weeks after surgery. No heavy lifting or vigorous activity until reevaluated in the office. No intercourse for 6 weeks after delivery. Discharge Disposition: HOME SELF-CARE
== END 2021-08-31 12:50 | disposition home or self-care (01) | DRG 784 ==
LOC: 4FBP 09:55
PROVIDERS: ADMIT Obstetrics & Gynecology Obstetrics; ATTEND Obstetrics & Gynecology Obstetrics
PROC: 0UL70CZ Occlusion of Bilateral Fallopian Tubes with Extraluminal Device, Open Approach (ICD-10-PCS; principal; 2021-08-28 12:07)
PROC: 10D00Z1 Extraction of Products of Conception, Low, Open Approach (ICD-10-PCS; principal; 2021-08-28 12:07)
DX: O34.211 Maternal care for low transverse scar from previous cesarean delivery (principal); O98.32 Other infections with a predominantly sexual mode of transmission complicating childbirth; A60.00 Herpesviral infection of urogenital system, unspecified; Z30.2 Encounter for sterilization; N85.8 Other specified noninflammatory disorders of uterus; O40.3XX0 Polyhydramnios, third trimester, not applicable or unspecified; Z3A.37 37 weeks gestation of pregnancy; Z37.0 Single live birth; Z79.82 Long term (current) use of aspirin; Z86.16 Personal history of COVID-19; Z79.899 Other long term (current) drug therapy; Z87.39 Personal history of other diseases of the musculoskeletal system and connective tissue; Z98.818 Other dental procedure status; Z82.49 Family history of ischemic heart disease and other diseases of the circulatory system
CPT/HCPCS: 85025; 86850; 86900; 86901; 88307

== ENCOUNTER 2024-07-24 08:35 | Emergency (ER) | payer BC ==
[2024-07-24 08:43] VITALS: BP 131/81; PULSE 96; RESP 18; TEMP 98.1
--- NOTE | 2024-07-24 08:59 | XR ---
EXAMINATION TYPE: XR KUB DATE OF EXAM: 07/24/2024 COMPARISON: NONE HISTORY: 11/03/2012 TECHNIQUE: One view abdominal series FINDINGS: The osseous structures are intact. The bowel gas pattern is nonspecific. Lung bases are clear. Post surgical change in the pelvis. IMPRESSION: 1. Nonspecific abdomen. Diagnostic evidence of obstruction. [facility], , 07/24/2024 8:57 AM
[2024-07-24 09:29] LABS: Appearance,Urine Clear (Clear); Bilirubin,Urine Negative (Negative); Blood,Urine Negative (Negative); Color,Urine Colorless; Glucose,Urine (UA) Negative (Negative); Ketones,Urine Negative (Negative); Leukocyte Esterase,Urine Negative (Negative); Nitrite,Urine Negative (Negative); PH, Urine 6.5 (5.0-8.0); Protein,Urine Negative (Negative); Specific Gravity,Urine 1.012 (1.001-1.035); Urobilinogen,Urine <2.0 mg/dL (<2.0)
--- NOTE | 2024-07-24 10:20 | ED ---
Abdominal Pain HPI - General Chief Complaint: Abdominal Pain Stated Complaint: Abdominal Pain Time Seen by Provider: 07/24/24 10:19 Source: patient, RN notes reviewed Mode of arrival: ambulatory Limitations: no limitations - History of Present Illness Initial Comments: 34-year-old female presented to the ER with a chief complaint of right lower quadrant abdominal pain. She states it has been on and off for the past couple of weeks. She states it is mainly a dull crampy pain with intermittent bouts of sharp shooting pain. She does report a history of ovarian cyst. She states she is currently on her menstrual cycle. Patient states it is not tender to touch and there is no known triggers to pain. She does state the pain makes her feel nauseous. She has tried naproxen without relief. Patient does report a tubal ligation. No fevers or chills. No history of kidney stones. No urinary complaints. No constipation or diarrhea. - Related Data Home Medications Medication Instructions Recorded Confirmed Aspirin 81 mg PO DAILY 07/30/21 08/28/21 Pnv No.95/Ferrous Fum/Folic AC 1 each PO DAILY 07/30/21 08/28/21 [ Multivitamin Tablet] Previous Rx's Medication Instructions Recorded Acetaminophen Tab [Tylenol] 1,000 mg PO Q6H tab 08/31/21 Ibuprofen 800 mg PO Q8H PRN #30 tab 08/31/21 Allergies Allergy/AdvReac Type Severity Reaction Status Date / Time No Known Allergies Allergy Verified 07/24/24 08:43 Review of Systems ROS Statement: Those systems with pertinent positive or pertinent negative responses have been documented in the HPI. ROS Other: All systems not noted in ROS Statement are negative. Past Medical History Past Medical History: No Reported History Additional Past Medical History / Comment(s): Left knee injury History of Any Multi-Drug Resistant Organisms: None Reported Past Surgical History: Section Additional Past Surgical History / Comment(s): wisdom teeth removed Past Anesthesia/Blood Transfusion Reactions: No Reported Reaction Past Psychological History: No Psychological Hx Reported Smoking Status: Never smoker Past Alcohol Use History: Occasional Past Drug Use History: None Reported - Past Family History Mother Family Medical History: Hypertension General Exam Limitations: no limitations General appearance: alert, in no apparent distress Respiratory exam: Present: normal lung sounds bilaterally. Absent: respiratory distress, wheezes, rales, rhonchi, stridor Cardiovascular Exam: Present: regular rate, normal rhythm, normal heart sounds. Absent: systolic murmur, diastolic murmur, rubs, gallop, clicks GI/Abdominal exam: Present: soft, normal bowel sounds. Absent: distended, tenderness, guarding, rebound, rigid Neurological exam: Present: alert, oriented X3, CN II-XII intact Skin exam: Present: warm, dry, intact, normal color. Absent: rash Course Vital Signs 07/24/24 08:40 Temperature 98.1 F Pulse Rate 96 Respiratory 18 Rate Blood Pressure 131/81 O2 Sat by Pulse 99 Oximetry Medical Decision Making - Medical Decision Making Was pt. sent in by a medical professional or institution (, PA, ELECTRICAL LINE SPLICER, urgent care, hospital, or detention...) When possible be specific @ -No Did you speak to anyone other than the patient for history (EMS, parent, family, police, friend...)? What history was obtained from this source @ -No Did you review nursing and triage notes (agree or disagree)? Why? @ -I reviewed and agree with nursing and triage notes Were old charts reviewed (outside hosp., previous admission, EMS record, old EKG, old radiological studies, urgent care reports/EKG's, detention records)? Report findings @ -No old charts were reviewed Differential Diagnosis (chest pain, altered mental status, abdominal pain women, abdominal pain men, vaginal bleeding, weakness, fever, dyspnea, syncope, headache, dizziness, GI bleed, back pain, seizure, CVA, palpatations, mental health, musculoskeletal)? @ -Differential Abdominal Pain Women: Appendicitis, Cholecystitis, diverticulosis, ischemic bowel, pancreatitis, hepatitis, UTI, gastroenteritis, AAA, incarcerated hernia, bowel obstruction, constipation, inflammatory bowel, hepatitis, peptic ulcer disease, splenic infarction, perforated viscus, vulvitis, ovarian torsion, PID, kidney stone, placenta abruption, this is not meant to be an all-inclusive list EKG interpreted by me (3pts min.). @ -None done X-rays interpreted by me (1pt min.). @ -KUB showing nonspecific gas bowel pattern. CT interpreted by me (1pt min.). @ -None done U/S interpreted by me (1pt. min.). @ -Transvaginal ultrasound showing a nonspecific uterine heterogeneity density.. Trace free fluid in the cul-de-sac. Appropriate arterial and venous flow to right ovary. Left obstructed by gas. What testing was considered but not performed or refused? (CT, X-rays, U/S, labs)? Why? @ -Patient refused blood work. What meds were considered but not given or refused? Why? @ -None Did you discuss the management of the patient with other professionals (professionals i.e. DrJenaro, PA, ELECTRICAL LINE SPLICER, lab, RT, psych nurse, social media manager, telephone surveyor, teacher, senior escrow officer, rn case manager)? Give summary @ -No Was smoking cessation discussed for >3mins.? @ -No Was critical care preformed (if so, how long)? @ -No Were there social determinants of health that impacted care today? How? (Homelessness, low income, unemployed, alcoholism, drug addiction, transportation, low edu. Level, literacy, decrease access to med. care, senior care, rehab)? @ -No Was there de-escalation of care discussed even if they declined (Discuss DNR or withdrawal of care, Hospice)? DNR status @ -No What co-morbidities impacted this encounter? (DM, HTN, Smoking, COPD, CAD, Cancer, CVA, ARF, Chemo, Hep., AIDS, mental health diagnosis, sleep apnea, morbid obesity)? @ -None Was patient admitted / discharged? Hospital course, mention meds given and route, prescriptions, significant lab abnormalities, going to OR and other pertinent info. @ -Discharge. 34-year-old female presented to the ER with a chief complaint of lower abdominal cramping. This has been ongoing for the past couple of weeks. Patient in no signs of distress and nontoxic-appearing. No focal abdominal tenderness. Normal bowel sounds. No rebound or guarding. Laboratory studies refused by patient. Urine analysis unremarkable. KUB showed nonspecific gas bowel pattern. Transvaginal ultrasound showing trace fluid in the cul-de-sac and nonspecific heterogenicity of the uterus which is likely related to patient's current menstrual cycle. Upon reevaluation, patient resting comfortab ly on stretcher no signs of acute distress. Results discussed with patient, all questions answered. Advise close follow-up with PCP/BANKING ASSISTANT. Patient will expressed understanding agree with care plan. Patient discharged stable condition. Case discussed with ED attending, Dr. Rich. Undiagnosed new problem with uncertain prognosis? @ -No Drug Therapy requiring intensive monitoring for toxicity (Heparin, Nitro, Insulin, Cardizem)? @ -No Were any procedures done? @ -No Diagnosis/symptom? @ -Abdominal pain Acute, or Chronic, or Acute on Chronic? @ -Acute Uncomplicated (without systemic symptoms) or Complicated (systemic symptoms)? @ -Uncomplicated Side effects of treatment? @ -No Exacerbation, Progression, or Severe Exacerbation? @ -No Poses a threat to life or bodily function? How? (Chest pain, [place], [place], pneumonia, PE, COPD, DKA, ARF, appy, cholecystitis, CVA, Diverticulitis, Homicidal, Suicidal, threat to staff... and all critical care pts) @ -No - Lab Data Lab Results 07/24/24 Range/Units 09:18 Urine Color Colorless Urine Appearance Clear (Clear) Urine pH 6.5 (5.0-8.0) Ur Specific [place] 1.012 (1.001-1.035) Urine Protein Negative (Negative) Urine Glucose (UA) Negative (Negative) Urine Ketones Negative (Negative) Urine Blood Negative (Negative) Urine Nitrite Negative (Negative) Urine Bilirubin Negative (Negative) Urine Urobilinogen <2.0 (<2.0) mg/dL Ur Leukocyte Esterase Negative (Negative) - Radiology Data Radiology results: report reviewed, image reviewed Disposition Clinical Impression: Abdominal pain Disposition: HOME SELF-CARE Condition: Stable Instructions (If sedation given, give patient instructions): Abdominal Pain (ED) Additional Instructions: Follow-up with PCP and BANKING ASSISTANT. Return to the ER for any new or worsening symptoms. Is patient prescribed a controlled substance at d/c from ED?: No Referrals: Rodri Cobos MD [Primary Care Provider] - 1-2 days Ernesto Roberto MD [STAFF PHYSICIAN] - 1-2 days Time of Disposition: 12:05
--- NOTE | 2024-07-24 11:14 | US ---
EXAMINATION TYPE: US transvaginal DATE OF EXAM: 07/24/2024 COMPARISON: CLINICAL INDICATION: Female, 34 years old with history of RLQ abd pain; Rt lower side pain that is wo rse in morning or night. Hx csection. TECHNIQUE: Transvaginal (TV) Date of LMP: 07/20/24, EXAM MEASUREMENTS: Uterus: 10.1 x 6.2 x 4.3 cm Endometrial Stripe: 0.5 cm Right Ovary: 2.1 x 1.3 x 1.1 cm 1. Uterus: Anteverted Slightly heterogenous 2. Endometrium: wnl 3. Right Ovary: follicles seen 4. Left Ovary: Obscured by overlying bowel gas Spectral, color and waveform doppler imaging shows good arterial and venous flow within the right o vary; there is no evdence for right ovarian torsion. 5. Bilateral Adnexa: wnl 6. Posterior cul-de-sac: trace fluid seen in cul de sac IMPRESSION: 1 nonspecific uterine heterogeneity. 2. Trace free fluid within the cul-de-sac. [facility], , 07/24/2024 11:12 AM
== END 2024-07-24 12:15 | disposition home or self-care (01) ==
LOC: EC 08:35
DX: R10.31 Right lower quadrant pain (principal)
CPT/HCPCS: 74018; 76830; 81003; 93976

== ENCOUNTER 2025-04-21 14:55 | Emergency (ER) | payer BC ==
--- NOTE | 2025-04-21 15:52 | ED ---
Neck Injury/Pain HPI - General Chief Complaint: Neck Pain/Injury Stated Complaint: Neck Pain/Hard to swallow Time Seen by Provider: 04/21/25 15:49 Source: patient, RN notes reviewed Mode of arrival: ambulatory Limitations: no limitations - History of Present Illness Initial Comments: 34-year-old female presenting for neck pain x 9 days. Denies trauma or injury. Reports pain at the left side of the neck. Also reports worsening pain with swallowing to the point where she spit out her coffee this morning due to the pain when she tried to swallow. Denies difficulty breathing. States she went to urgent care where they performed an x-ray of the neck and told her they were concerned for a soft tissue infection of the neck and to come to the emergency room for CT of the neck. Denies fevers, nausea, vomiting. She is otherwise healthy. Denies lip, tongue, or neck swelling. - Related Data Home Medications Medication Instructions Recorded Confirmed Aspirin 81 mg PO DAILY 07/30/21 08/28/21 Pnv No.95/Ferrous Fum/Folic AC 1 each PO DAILY 07/30/21 08/28/21 [ Multivitamin Tablet] Previous Rx's Medication Instructions Recorded Acetaminophen Tab [Tylenol] 1,000 mg PO Q6H tab 08/31/21 Ibuprofen 800 mg PO Q8H PRN #30 tab 08/31/21 predniSONE [Deltasone] 40 mg PO DAILY #10 tab 04/21/25 Allergies Allergy/AdvReac Type Severity Reaction Status Date / Time No Known Allergies Allergy Verified 04/21/25 15:02 Review of Systems ROS Statement: Those systems with pertinent positive or pertinent negative responses have been documented in the HPI. ROS Other: All systems not noted in ROS Statement are negative. Past Medical History Past Medical History: No Reported History Additional Past Medical History / Comment(s): Left knee injury History of Any Multi-Drug Resistant Organisms: None Reported Past Surgical History: Section Additional Past Surgical History / Comment(s): wisdom teeth removed Past Anesthesia/Blood Transfusion Reactions: No Reported Reaction Past Psychological History: No Psychological Hx Reported Smoking Status: Never smoker Past Alcohol Use History: Occasional Past Drug Use History: None Reported - Past Family History Mother Family Medical History: Hypertension General Exam Limitations: no limitations General appearance: alert, in no apparent distress Head exam: Present: atraumatic, normocephalic, normal inspection Eye exam: Present: normal appearance, PERRL, EOMI. Absent: scleral icterus, conjunctival injection, periorbital swelling ENT exam: Present: normal exam, normal oropharynx, mucous membranes moist Neck exam: Present: normal inspection, full ROM. Absent: tenderness, meningismus, lymphadenopathy Respiratory exam: Present: normal lung sounds bilaterally. Absent: respiratory distress, wheezes, rales, rhonchi, stridor Cardiovascular Exam: Present: regular rate, normal rhythm, normal heart sounds. Absent: systolic murmur, diastolic murmur, rubs, gallop, clicks Neurological exam: Present: alert, oriented X3 Psychiatric exam: Present: normal affect, normal mood Skin exam: Present: warm, dry, intact, normal color. Absent: rash Course Vital Signs 04/21/25 14:59 Temperature 97.9 F Pulse Rate 83 Respiratory 16 Rate Blood Pressure 119/79 O2 Sat by Pulse 100 Oximetry Medical Decision Making - Medical Decision Making Was pt. sent in by a medical professional or institution (, PA, STATISTICIAN THEORETICAL, urgent care, hospital, or prison...) When possible be specific @ -Sent from urgent care for CT soft tissue neck Did you speak to anyone other than the patient for history (EMS, parent, family, police, friend...)? What history was obtained from this source @ -No Did you review nursing and triage notes (agree or disagree)? Why? @ -I reviewed and agree with nursing and triage notes Were old charts reviewed (outside hosp., previous admission, EMS record, old EKG, old radiological studies, urgent care reports/EKG's, prison records)? Report findings @ -No old charts were reviewed Differential Diagnosis (chest pain, altered mental status, abdominal pain women, abdominal pain men, vaginal bleeding, weakness, fever, dyspnea, syncope, headache, dizziness, GI bleed, back pain, seizure, CVA, palpatations, mental health, musculoskeletal)? @ -Retropharyngeal abscess, peritonsillar abscess, neck strain, meningitis EKG interpreted by me (3pts min.). @ -None X-rays interpreted by me (1pt min.). @ -None done CT interpreted by me (1pt min.). @ -CT soft tissue neck with contrast reveals no acute process U/S interpreted by me (1pt. min.). @ -None done What testing was considered but not performed or refused? (CT, X-rays, U/S, labs)? Why? @ -None What meds were considered but not given or refused? Why? @ -None Did you discuss the management of the patient with other professionals (professionals i.e. , PA, STATISTICIAN THEORETICAL, lab, RT, psych nurse, licensed clinical social worker, corporation lawyer, teacher, appeals officer, rn case management)? Give summary @ -No Was smoking cessation discussed for >3mins.? @ -No Was critical care preformed (if so, how long)? @ -No Were there social determinants of health that impacted care today? How? (Homelessness, low income, unemployed, alcoholism, drug addiction, trans portation, low edu. Level, literacy, decrease access to med. care, group home, rehab)? @ -No Was there de-escalation of care discussed even if they declined (Discuss DNR or withdrawal of care, Hospice)? DNR status @ -No What co-morbidities impacted this encounter? (DM, HTN, Smoking, COPD, CAD, Cancer, CVA, ARF, Chemo, Hep., AIDS, mental health diagnosis, sleep apnea, morbid obesity)? @ -None Was patient admitted / discharged? Hospital course, mention meds given and route, prescriptions, significant lab abnormalities, going to OR and other pertinent info. @ -Discharge. 34-year-old female presenting for neck pain x 9 days with pain with swallowing. Sent from urgent care for concern for retropharyngeal abscess. Patient states she received an oral steroid at the urgent care and now feels much better. Vital signs within acceptable limits. Patient is afebrile, nontachycardic. No tripoding. No difficulty breathing or swallowing. Patient is overall well-appearing. No edema of the lip, tongue, face, or neck. Lab work remarkable for elevated glucose of 215 otherwise unremarkable. White blood cell count 9. CT soft tissue neck reveals no acute process. Discussed negative results with patient. Discussed diagnosis of neck strain. Provided with outpatient course of steroids to start tomorrow. Advised to follow-up with her PCP this week. Appropriate return precautions discussed. Case was discussed with my ED attending Dr. Noland. Undiagnosed new problem with uncertain prognosis? @ -No Drug Therapy requiring intensive monitoring for toxicity (Heparin, Nitro, Insulin, Cardizem)? @ -No Were any procedures done? @ -No Diagnosis/symptom? @ -Neck strain Acute, or Chronic, or Acute on Chronic? @ -Acute Uncomplicated (without systemic symptoms) or Complicated (systemic symptoms)? @ -Uncomplicated Side effects of treatment? @ -No Exacerbation, Progression, or Severe Exacerbation? @ -No Poses a threat to life or bodily function? How? (Chest pain, USA, PR, pneumonia, PE, COPD, DKA, ARF, appy, cholecystitis, CVA, Diverticulitis, Homicidal, Suicidal, threat to staff... and all critical care pts) @ -No - Lab Data Result diagrams: 04/21/25 15:58 04/21/25 15:58 Lab Results 04/21/25 04/21/25 Range/Units 15:58 15:58 WBC 7.28 (4.50-10.00) 10*3/uL RBC 4.14 (4.10-5.20) 10*6/uL Hgb 12.3 (12.0-15.0) g/dL Hct 35.9 L (37.2-46.3) % MCV 86.7 (80.0-97.0) fL MCH 29.7 (27.0-32.0) pg MCHC 34.3 (32.0-37.0) g/dL Plt Count 298 (140-440) 10*3/uL MPV 9.3 L (9.5-12.2) fL Immature Gran % (Auto) 0.3 % Neutrophils % 87.1 % Lymphocytes % 10.2 % Monocytes % 1.6 % Eosinophils % 0.5 % Basophils % 0.3 % Immature Gran # 0.02 (0.00-0.04) 10*3/uL Neutrophils # 6.34 (1.80-7.70) 10*3/uL Lymphocytes # 0.74 L (0.90-5.00) 10*3/uL Monocytes # 0.12 L (0.20-1.00) 10*3/uL Eosinophils # 0.04 (0.04-0.35) 10*3/uL Basophils # 0.02 (0.00-0.10) 10*3/uL Sodium 136 L (137-145) mmol/L Potassium 3.8 (3.5-5.1) mmol/L Chloride 106 (98-107) mmol/L Carbon Dioxide 22 (22-30) mmol/L Anion Gap 8 mmol/L BUN 8 (7-17) mg/dL Creatinine 0.63 (0.52-1.04) mg/dL Est GFR (CKD-EPI)AfAm >90 (>60 ml/min/1.73 sqM) Est GFR (CKD-EPI)NonAf >90 (>60 ml/min/1.73 sqM) Glucose 215 H (74-99) mg/dL Calcium 9.2 (8.4-10.2) mg/dL Total Bilirubin 0.5 (0.2-1.3) mg/dL AST 16 (14-36) U/L ALT 10 (4-34) U/L Alkaline Phosphatase 47 (38-126) U/L Total Protein 6.6 (6.3-8.2) g/dL Albumin 4.1 (3.5-5.0) g/dL Disposition Clinical Impression: Strain of neck muscle Disposition: HOME SELF-CARE Condition: Stable Instructions (If sedation given, give patient instructions): Cervical Strain (ED) Additional Instructions: Start prednisone tomorrow. Follow-up with your doctor this week for reevaluation if there is no improvement of symptoms. Please return to the Emergency Department if symptoms worsen or any other concerns. Prescriptions: predniSONE [Deltasone] 40 mg PO DAILY #10 tab Is patient prescribed a controlled substance at d/c from ED?: No Referrals: Rodri Cobos MD [Primary Care Provider] - 1-2 days Time of Disposition: 18:22
[2025-04-21 16:13] LABS: Basophils # (A) 0.02 10*3/uL (0.00-0.10); Basophils % (A) 0.3 %; Eosinophils # (A) 0.04 10*3/uL (0.04-0.35); Eosinophils % (A) 0.5 %; HCT 35.9 % (37.2-46.3); HGB 12.3 g/dL (12.0-15.0); Lymphocytes # (A) 0.74 10*3/uL (0.90-5.00); Lymphocytes % (A) 10.2 %; MCH 29.7 pg (27.0-32.0); MCHC 34.3 g/dL (32.0-37.0); MCV 86.7 fL (80.0-97.0); Mean Platelet Volume 9.3 fL (9.5-12.2); Monocytes # (A) 0.12 10*3/uL (0.20-1.00); Monocytes % (A) 1.6 %; Neutrophils # (A) 6.34 10*3/uL (1.80-7.70); Neutrophils % (A) 87.1 %; Platelet Count 298 10*3/uL (140-440); RBC 4.14 10*6/uL (4.10-5.20); RDW 12.2 % (11.5-14.5); WBC 7.28 10*3/uL (4.50-10.00)
[2025-04-21 16:32] LABS: ALT 10 U/L (4-34); AST 16 U/L (14-36); African American GFR (CKD) >90 (>60 ml/min/1.73 sqM); Albumin 4.1 g/dL (3.5-5.0); Alkaline Phosphatase 47 U/L (38-126); Anion Gap 8 mmol/L; Blood Urea Nitrogen 8 mg/dL (7-17); Calcium 9.2 mg/dL (8.4-10.2); Carbon Dioxide 22 mmol/L (22-30); Chloride 106 mmol/L (98-107); Glucose 215 mg/dL (74-99); Non-African American GFR(CKD) >90 (>60 ml/min/1.73 sqM); Potassium 3.8 mmol/L (3.5-5.1); Sodium 136 mmol/L (137-145); Total Bilirubin 0.5 mg/dL (0.2-1.3); Total Protein 6.6 g/dL (6.3-8.2)
--- NOTE | 2025-04-21 17:47 | CT ---
EXAMINATION TYPE: CT soft tissue neck w con DATE OF EXAM: 04/21/2025 5:26 PM COMPARISON: None available. CLINICAL INDICATION: Female, 34 years old with history of neck pain, odynophagia x 9 days; PHH, Neck pain, odynophagia x 9 days. TECHNIQUE: Standard enhanced CT of the neck. Axial sections with coronal and sagittal reformats were obtained. Contrast used:100 ml mL of Isovue 300 with IV Contrast, (None if empty) CT DLP: 218 mGycm, Automated exposure control for dose reduction was used. FINDINGS: Brain: Visualized portions are grossly unremarkable. Orbits: Unremarkable Sinuses: Mucosal retention cysts in the posterior maxillary sinuses. Spaces of the neck: Clear and symmetric. Musculoskeletal: No acute osseous pathology. Lymph nodes: Multiple nonenlarged lymph nodes are seen along both anterior chains of the neck. No p athologic cervical chain lymphadenopathy. Vascular structures: Visualized major arteries are patent without evidence of aneurysm. Thoracic Inlet/airway: Airway is patent. The lung apices are clear. Soft tissues/Thyroid: Thyroid and remainder of the soft tissues are unremarkable. No drainable fluid collection/abscess identified. Parotid glands and submandibular glands appear symmetric. Other: none. IMPRESSION No CT evidence of acute pathology in the neck. [facility], , 04/21/2025 5:45 PM
[2025-04-21 18:40] VITALS: BP 118/61; PULSE 76; RESP 20; TEMP 98.1
== END 2025-04-21 19:32 | disposition home or self-care (01) ==
LOC: EC 14:55
DX: S16.1XXA Strain of muscle, fascia and tendon at neck level, initial encounter (principal); X58.XXXA Exposure to other specified factors, initial encounter
CPT/HCPCS: 36415; 80053; 85025; 70491; 99284; Q9967